=== PATIENT | male | born 1995 | race African-American/Black ===

== ENCOUNTER 2022-05-10 08:41 | Emergency (ER) | payer MEDICAID ==
[~2022-05-10] VITALS: Ht 175.3 cm; Wt 78.0 kg
[2022-05-10 08:50] VITALS: BP 122/58
[2022-05-10] MEDS ORDERED: AZITHROMYCIN 500 MG TABLET PO ONE (09:00)
[2022-05-10] MEDS ORDERED: CEFTRIAXONE SODIUM 500 MG/VIAL IM ONE (09:00)
[2022-05-10 09:40] LABS: CLARITY URINE CLEAR (CLEAR); COLOR URINE YELLOW (YELLOW); KETONES URINE NEGATIVE (NEGATIVE); LEUKOCYTE ESTERASE URINE 2+ (NEGATIVE); NITRITE URINE NEGATIVE (NEGATIVE); OCCULT BLOOD URINE NEGATIVE (NEGATIVE); PH URINE 6.5 (4.5-8.0); PROTEIN URINE NEGATIVE (NEGATIVE); SPECIFIC GRAVITY URINE 1.022 (1.005-1.030)
[2022-05-10] MEDS ORDERED: CEPH500C2 MT (10:24)
[2022-05-12 10:11] LABS: NEISSERIA GONORRHOEAE NAA Positive (Negative)
== END 2022-05-10 10:34 | disposition home or self-care (01) ==
LOC: ER 08:41
DX: N34.2 Other urethritis (principal)
CPT/HCPCS: 81003; 87077; 87086; 87491; 87591; 96372; 99283; J0696

== ENCOUNTER 2022-08-21 11:30 | Emergency (ER) | payer MEDICAID ==
[~2022-08-21] VITALS: Ht 180.3 cm; Wt 75.0 kg
[~2022-08-21 11:30] MED LIST: CEPH500C2 MT
[2022-08-21 11:41] VITALS: BP 117/54
[2022-08-21] MEDS ORDERED: CEFTRIAXONE SODIUM 250 MG/VIAL IM ONE (14:30)
[2022-08-21] MEDS ORDERED: DOXY100T2 MT (14:57)
[2022-08-23 13:07] LABS: HIV SCREEN 4G Non Reactive (Non Reactive)
[2022-08-24 19:06] LABS: NEISSERIA GONORRHOEAE NAA Negative (Negative)
== END 2022-08-21 15:42 | disposition home or self-care (01) ==
LOC: ER 11:30
DX: N34.2 Other urethritis (principal); R30.0 Dysuria
CPT/HCPCS: 87389; 87491; 87591; 99283; J0696; 99281

== ENCOUNTER 2022-09-14 07:44 | Emergency (ER) | payer MEDICAID ==
[~2022-09-14] VITALS: Ht 180.3 cm; Wt 70.0 kg
[~2022-09-14 07:44] MED LIST changes: +DOXY100T2 MT
[2022-09-14 08:02] VITALS: BP 109/73
[2022-09-14] MEDS ORDERED: DOXYCYCLINE HYCLATE 100MG CAPSULE PO ONE (08:30)
[2022-09-14] MEDS ORDERED: CEFTRIAXONE SODIUM 500 MG/VIAL IM ONE (08:30)
[2022-09-14] MEDS ORDERED: DOXY100C5 MT (09:26)
== END 2022-09-14 10:08 | disposition home or self-care (01) ==
LOC: ER 08:15
DX: Z20.2 Contact with and (suspected) exposure to infections with a predominantly sexual mode of transmission (principal)
CPT/HCPCS: 96372; 99283; J0696